=== PATIENT | male | born 1990 | race Hispanic/Latino ===

== ENCOUNTER 2023-09-05 14:24 | Emergency (ER) | payer SELFPAY ==
[~2023-09-05 14:24] MED LIST: Iopamidol-370 76% 500 ML MDV (1 ML CHARGE) ONE
[2023-09-05 15:17] LABS: #Monocytes 0.5 thou/uL (0.11-0.59); %Basophils 0.5 % (0.0-1.0); %Eosinophils 0.5 % (0.0-10.0); %Lymphocytes 27.2 % (21.0-51.0); %Monocytes 6.2 % (0.0-10.0); %Neutrophils 64.9 % (42.0-75.0); Hemoglobin 16.4 g/dL (14.0-18.0); Mean Corpuscular HGB CONC 34.9 g/dL (32.0-36.0); Mean Corpuscular Volume 83.2 fl (78.0-98.0); Mean Platelet Volume 9.3 fL (7.4-10.4); Platelet Count 328 10x3/uL (130-400); RBC Distribution Width 13.4 % (11.5-14.5); Red Blood Cell (RBC) Count 5.65 mill/uL (4.70-6.10); White Blood Cell (WBC) Count 7.6 10x3/uL (4.8-10.8)
[2023-09-05 15:30] LABS: ALT (SGPT) 88 U/L (8-55); AST (SGOT) 40 U/L (5-34); Albumin 4.9 g/dL (3.5-5.0); Alkaline Phosphatase 70 U/L (40-110); Anion Gap 17 mmol/L (10-20); BUN (Urea Nitrogen) 17 mg/dL (8.9-20.6); Bilirubin, Total 0.9 mg/dL (0.2-1.2); Calc. Creatinine Clearance 0 mL/min (70-130); Calcium 9.7 mg/dL (7.8-10.44); Carbon Dioxide 20 mmol/L (22-29); Chloride 106 mmol/L (98-107); Estimated GFR 115; Glucose 94 mg/dL (70-105); Lipase 39 U/L (8-78); Protein, Total 7.9 g/dL (6.0-8.3); Sodium 139 mmol/L (136-145)
[2023-09-05] MEDS ORDERED: Famotidine/PF 20 mg/2ml Vial ONE (15:45)
[2023-09-05] MEDS ORDERED: Ondansetron PF 4 MG/2 ML Vial ONE (15:45)
[2023-09-05 16:06] LABS: Bacteria/HPF None Seen HPF (None Seen); Bilirubin Negative (Negative); Blood, Urine Negative (Negative); CAUTI Indications for Culture Dysuria,urgency,freq; Clarity Clear (Clear); Glucose, Urine (Dipstick) Normal (Negative); Ketone, Urine 20 mg/dL (Negative); Leukocyte Negative Leu/uL (Negative); Nitrite Negative (Negative); Protein, Urine (Dipstick) 20 mg/dL (Neg-Trace); Specific Gravity, Urine 1.035 (1.002-1.036); Squamous Epithelial None Seen HPF (0-3); Urobilinogen Normal mg/dL (Less than 2); WBC/HPF 0-3 HPF (0-3); pH, Urine 5.5 (5.0-9.0)
[2023-09-05 16:09] LABS: Urine Culture Reflex No No
[2023-09-05 16:40] LABS: Troponin I Less than 0.010 ng/mL (< 0.028)
== END 2023-09-05 17:35 | disposition home or self-care (01) ==
LOC: ERS 14:24
DX: R10.12 Left upper quadrant pain (principal); R07.89 Other chest pain
CPT/HCPCS: 36415; 71045; 74177; 80053; 81001; 83690; 84484; 85025; 93005; 96374; 96375; J2405; S0028

== ENCOUNTER 2024-07-08 08:22 | Outpatient (CLI) | payer OTHER | END 2024-07-08 08:23 | disposition home or self-care (01) | LOC: ULT 08:22 | PROVIDERS: ATTEND Internal Medicine | DX: R10.811 Right upper quadrant abdominal tenderness (principal); R16.0 Hepatomegaly, not elsewhere classified | CPT/HCPCS: 76705 ==